=== PATIENT | male | born 1955 | race Caucasian/White ===

== ENCOUNTER 2018-10-07 21:00 | Emergency (ER) | payer OTHER ==
[~2018-10-07] VITALS: Ht 177.8 cm; Wt 95.3 kg
--- NOTE | ~2018-10-07 | EMS ---
[address] [address] EMS Patient Care Report Name: CHARMAINE CANALES Room #: REG CLAUDIO Gaffney#: [id number] Admission: 10/07/18 Attend Phys: Discharge: Date of : 59 Report #: [id number] THIS REPORT FOR: //name// Report Transmitted: 10/07/2018 20:49 EMS Care Summary [facility] MED-ACT Incident [id number] @ 10/07/2018 20:31 Incident Location [address] [place] [address] Patient CHARMAINE CANALES Male, 63 Years 1955 Patient Address [address] [place] [address] Patient History Alcohol Abuse, Patient Allergies No known allergies, Patient Medications None Reported, Chief Complaint none Disposition Transported No Lights/[place] Reason Altered Mental Status Transported To [facility] Narrative PT was noticed to be laying in the front yard of a neighbors house. they attempted to awaken him with no success. ems contacted. PT is laying in the grass incontinent of urine, eyes open, probable etoh [address] [address] EMS Patient Care Report Name: CHARMAINE CANALES Room #: REG ER Gulshan#: [id number] Admission: 10/07/18 Attend Phys: Discharge: Date of : 59 Report #: [id number] present. PT is holding his mouth shut and is selective with the yes or no answers he gives. I suggested he get up and sit on our cot to go to [facility] ED he said sure. PT did not converse en route to ED Initial Vitals @20:41P: 126,BP: 114/66,SpO2: 91, @20:51P: 97,BP: 113/65,SpO2: 93, @20:45P: 97,R: 14,BP: 114/65,Pain: 0/10,GCS: 15,Glucose: 99,SpO2: 94,Revised Trauma: 12,NM Suspected: false @20:54BP: 98/63, @PTAR: 14,BP: 115/80,Pain: 0/10,GCS: 15,SpO2: 98,Revised Trauma: 12, Assessments @20:40MENTAL:Other,SKIN:HEENT:Eyes: Left Pupil: 4-mm,Eyes: Right Pupil: 4-mm,Head/Face: No Abnormalities,Neck/Airway: No Abnormalities,LUNG SOUNDS:General: No Abnormalities,Right Upper: No Abnormalities,ABDOMEN:General: No Abnormalities,Right Upper: No Abnormalities,PELVIS//GI:Incontinence,EXTREMITIES:Left Arm: No Abnormalities,Right Arm: No Abnormalities,Left Leg: No Abnormalities,Right Leg: No Abnormalities,PULSE:Radial: 2+ Normal,NEURO:No Abnormalities, Impression 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,BP: 115/80 M,PULSE: ,RR: 14 R,SPO2: 98 Ox,ETCO2: ,BG: ,PAIN: 0,GCS: 15, 20:31,Call Received 20:31,Psap Call 20:31,Dispatched 20:32,En Route 20:38,On Scene 20:40,At Patient 20:41,BP: 114/66 M,PULSE: 126,RR: R,SPO2: 91 Ox,ETCO2: ,BG: ,PAIN: ,GCS: , 20:45,BP: 114/65 M,PULSE: 97,RR: 14 R,SPO2: 94 Ox,ETCO2: ,B,PAIN: 0,GCS: 15, 20:46,Depart Scene 20:51,BP: 113/65 M,PULSE: 97,RR: R,SPO2: 93 Ox,ETCO2: ,BG: ,PAIN: ,GCS: , 20:54,BP: 98/63 M,PULSE: ,RR: R,SPO2: Ox,ETCO2: ,BG: ,PAIN: ,GCS: , 20:56,At Destination 21:19,Call Closed Disclaimer [address] [address] EMS Patient Care Report Name: CHARMAINE CANALES Room #: REG ER [facility].#: [id number] Admission: 10/07/18 Attend Phys: Discharge: Date of : 59 Report #: [id number] Copyright 2019 [facility] This EMS Care Summary contains data elements from the applicable legal record (which may be displayed differently). It is designed to provide pertinent information for the following purposes: continuity of care, clinical quality, and state data reporting. The complete legal record is available to ED staff and administrators of the receiving hospital in [facility]'s Patient Tracker. All data is provided "as is."
[2018-10-07 23:37] VITALS: BP 125/77
== END 2018-10-07 23:40 | disposition home or self-care (01) ==
LOC: ER 21:00
DX: F10.129 Alcohol abuse with intoxication, unspecified (principal); R41.82 Altered mental status, unspecified